=== PATIENT | female | born 2000 | race Two or more races ===

== ENCOUNTER 2019-10-30 13:40 | Emergency (ER) | payer OTHER ==
[~2019-10-30] VITALS: Ht 165.1 cm; Wt 68.2 kg
[2019-10-30 13:40] VITALS: BP 126/77
--- NOTE | 2019-10-30 14:11 | PHYS DOC ---
Past History Past Medical History: No Pertinent History Adult General Chief Complaint Chief Complaint: ABDOMINAL PAIN HPI HPI Patient is a 19 year old female without history of medical problem who presents with complaining of vaginal bleeding and abdominal pain in . Patient states her LMP was September 15 and she had 3 positive home test since October 20 and was seen at [facility] with pending urine test result. She'll complaining of vaginal spotting since last night with passing blood clots date that is heavier than her usual menstruation. Patient states she has right lower quadrant cramping. Denies dizziness, fever and chills, nausea and vomiting. Patient states she took Vicodin without Plan B after her last intercourse. Review of Systems Review of Systems Constitutional: Denies fever or chills [] Eyes: Denies change in visual acuity, redness, or eye pain [] HENT: Denies nasal congestion or sore throat [] Respiratory: Denies cough or shortness of breath [] Cardiovascular: No additional information not addressed in HPI [] GI: Reports abdominal pain, denies nausea, vomiting, bloody stools or diarrhea [] : Denies dysuria or hematuria [] Musculoskeletal: Denies back pain or joint pain [] Integument: Denies rash or skin lesions [] Neurologic: Denies headache, focal weakness or sensory changes [] Endocrine: Denies polyuria or polydipsia [] All other systems were reviewed and found to be within normal limits, except as documented in this note. Physical Exam Physical Exam Constitutional: Well developed, well nourished, no acute distress, non-toxic appearance. [] HENT: Normocephalic, atraumatic, bilateral external ears normal, oropharynx moist, no oral exudates, nose normal. [] Eyes: PERRLA, EOMI, conjunctiva normal, no discharge. [] Neck: Normal range of motion, no tenderness, supple, no stridor. [] Cardiovascular:Heart rate regular rhythm, no murmur [] Lungs & Thorax: Bilateral breath sounds clear to auscultation [] Abdomen: Bowel sounds normal, soft, no tenderness, no masses, no pulsatile masses. [] Skin: Warm, dry, no erythema, no rash. [] Back: No tenderness, no CVA tenderness. [] Extremities: No tenderness, no cyanosis, no clubbing, ROM intact, no edema. [] Neurologic: Alert and oriented X 3, normal motor function, normal sensory function, no focal deficits noted. [] Psychologic: Affect normal, judgement normal, mood normal. [] EKG EKG [] Radiology/Procedures Radiology/Procedures [address] [address] IMAGING REPORT Signed PATIENT: ROGER DELACRUZ NACCOUNT: [id number] : 2000 LOCATION: ER AGE: 19 SEX: F EXAM STATUS: PRE ER ORD. PHYSICIAN: VERONICA MORAN MD REASON: vaginal bleeding in PROCEDURE: OB <14 WKS EXAM: Obstetrics sonogram. HISTORY: Vaginal bleeding. TECHNIQUE: Sonographic imaging of the pelvis was performed. COMPARISON: None. FINDINGS: The uterus measures 8.4 x 4.3 x 3.3 cm. No intrauterine gestational sac is seen. The ovaries are normal in size and demonstrate normal blood flow. There is a small region of hypoechogenicity along the endometrial cavity which is not typical in appearance for blood products or endometrial thickening. There is no pelvic free fluid. IMPRESSION: 1. No evidence of a uterine gestational sac. There is no beta-hCG level at the time of dictation for correlation. Correlate with serial beta-hCG levels. There are no secondary findings to suggest ectopic gestation. 2. Small region of hypoechogenicity along the endometrial cavity, not typical appearance for blood products or endometrial thickening. Attention at the time of follow-up can be performed to confirm resolution. 3. Unremarkable ovaries. Electronically signed by: Aniya Cornejo MD (10/30/2019 3:40 PM) [facility] [place] DICTATED AND SIGNED BY: ANIYA CORNEJO MD DATE: 10/30/19 8725 CC: VERONICA MORAN MD; PCP,UNKNOWN ~ Course & Med Decision Making Course & Med Decision Making Pertinent Labs and Imaging studies reviewed. (See chart for details) Evaluation of patient in ER showed 19-year-old female patient with LMP of September 15 with complaining of vaginal bleeding since yesterday and passing blood clots today. Patient had unremarkable physical exam and didn't want to have vaginal exam. Patient had a positive blood type. Beta-hCG was 1600. OB ultrasound did not show anything intrauterine or extrauterine . Possibility of completed miscarriage but patient was advised to follow-up with her [employer] [facility] for repeat hCG in 48 hours. I've spoken with the patient and/or caregivers. I've explained the patient's con dition, diagnosis and treatment plan based on information available to me at this time. I've answered the patient's and/or caregivers questions and addressed any concerns. The patient and/or caregivers have a good understanding the patient's diagnosis, condition and treatment plan as can be expected at this point. Vital signs have been stabilized. The patient's condition is stable for discharge from the emergency department. The patient will pursue further outpatient evaluation with her primary care provider or other designated consulting physician as outlined in the discharge instructions. Patient and/or caregivers are agreeable to this plan of care and follow-up instructions have been explained in detail. The patient and/or caregivers have received these instructions in written format and expressed understanding of these discharge instructions. The patient and her caregivers are aware that if any significant change in condition or worsening of symptoms should prompt him to immediately return to this of the closest emergency department. If an emergent department is not readily available I would encourage him to call 911. Dragon Disclaimer Dragon Disclaimer This electronic medical record was generated, in whole or in part, using a voice recognition dictation system. Departure Departure: Impression: Primary Impression: Threatened Disposition: HOME, SELF-CARE (at 1709) Condition: STABLE Referrals: PCP,UNKNOWN (PCP) SHAGGY VARGAS MD Patient Instructions: Threatened Miscarriage Additional Instructions: Follow-up with [facility] [facility] in 48 hours for repeat hCG level , your current one was 1634 Follow-up with your primary care physician in 3-5 days Return to ER if not getting better VERONICA MORAN MD Oct 30, 2019 14:10
--- NOTE | 2019-10-30 15:43 | RAD ---
EXAM: Obstetrics sonogram. HISTORY: Vaginal bleeding. TECHNIQUE: Sonographic imaging of the pelvis was performed. COMPARISON: None. FINDINGS: The uterus measures 8.4 x 4.3 x 3.3 cm. No intrauterine gestational sac is seen. The ovaries are normal in size and demonstrate normal blood flow. There is a small region of hypoechogenicity along the endometrial cavity which is not typical in appearance for blood products or endometrial thickening. There is no pelvic free fluid. IMPRESSION: 1. No evidence of a uterine gestational sac. There is no beta-hCG level at the time of dictation for correlation. Correlate with serial beta-hCG levels. There are no secondary findings to suggest ectopic gestation. 2. Small region of hypoechogenicity along the endometrial cavity, not typical appearance for blood products or endometrial thickening. Attention at the time of follow-up can be performed to confirm resolution. 3. Unremarkable ovaries. Electronically signed by: Aniya Alexandre MD (10/30/2019 3:40 PM) [facility] [place]
[2019-10-30 16:23] LABS: BASO % 0 % (0-3); EOS # 0.1 x10^3/uL (0.0-0.7); EOS % 1 % (0-3); HEMATOCRIT 39.5 % (36.0-47.0); HEMOGLOBIN 13.2 g/dL (12.0-15.5); LYMPH # 1.5 x10^3/uL (1.0-4.8); LYMPH % 16 % (24-48); MEAN CORPUSCULAR HEMOGLOBIN 28 pg (25-35); MEAN CORPUSCULAR HGB CONC 33 g/dL (31-37); MEAN CORPUSCULAR VOLUME 83 fL (79-100); MONO # 0.6 x10^3/uL (0.0-1.1); MONO % 7 % (0-9); NEUT # 7.3 x10^3uL (1.8-7.7); NEUT % 76 % (31-73); PLATELET COUNT 257 x10^3/uL (140-400); RED BLOOD COUNT 4.75 x10^6/uL (3.50-5.40); RED CELL DISTRIBUTION WIDTH 13.2 % (11.5-14.5); WHITE BLOOD COUNT 9.5 x10^3/uL (4.0-11.0)
== END 2019-10-30 17:28 | disposition home or self-care (01) ==
LOC: ER 13:40
DX: O20.0 Threatened abortion (principal); Z3A.00 Weeks of gestation of pregnancy not specified
CPT/HCPCS: 36415; 76801; 81025; 84702; 85025; 86900; 86901; 99284